=== PATIENT | female | born 1960 | race Caucasian/White ===

== ENCOUNTER 2016-09-02 06:23 | Day surgery (SDC) | payer OTHER ==
[~2016-09-02] VITALS: Ht 149.9 cm; Wt 94.5 kg
[~2016-09-02 06:23] MED LIST: ALPR0.5T8 PO; BACL10TA PO; DICL2100G TP; DOCU250C91 PO; ESZO3 PO; IBUP-1547 PO; LATA2.5D2 OU; LEVO25TA9 PO; LIDO15CR11 TP; LORA10TA7 PO; OMEP40CA12 PO; OXYC10 PO; SUCR1TAB PO; TOPI100 PO; TRAZ150 PO; VILA10TA PO; VILA20TA PO
[2016-09-02] MEDS ORDERED: SODIUM CHLORIDE 0.9% 1,000 ML IV ONE ×2 (06:40→06:45)
[2016-09-02] MEDS ORDERED: BUPIVACAINE HCL/PF 0.75% 10 ML VIAL ONE (07:35)
[2016-09-02] MEDS ORDERED: LIDOCAINE HCL/PF 2% 5 ML VIAL ONE (07:35)
[2016-09-02] MEDS ORDERED: TRIAMCINOLONE ACETONIDE 40 MG/ML VIAL ONE (07:35)
[2016-09-02] MEDS ORDERED: SODIUM BICARBONATE 50 MEQ/50 ML VIAL ONE (07:35)
[2016-09-02] MEDS ORDERED: LIDOCAINE HCL/PF 1% 30 ML VIAL ONE (07:35)
[2016-09-02] MEDS ORDERED: IOHEXOL 300 MG/ML 10 ML VIAL ONE (07:35)
[2016-09-02] MEDS ORDERED: LEVO2TAB4 PO (07:44)
[2016-09-02] MEDS ORDERED: FentaNYL CITRATE-PF 100 MCG/2 ML VIAL ONE (08:01)
[2016-09-02] MEDS ORDERED: MIDAZOLAM HCL 2 MG/2 ML VIAL ONE (08:01)
[2016-09-02 08:02] VITALS: BP 136/93
[2016-09-02] MEDS ORDERED: LIDOCAINE HCL/PF 2% 5 ML VIAL IARTIC ONE (08:30)
[2016-09-02] MEDS ORDERED: TRIAMCINOLONE ACETONIDE 40 MG/ML VIAL IARTIC ONE (08:30)
[2016-09-02] MEDS ORDERED: IOHEXOL 300 MG/ML 10 ML VIAL IARTIC ONE (08:30)
[2016-09-02] MEDS ORDERED: MIDAZOLAM HCL 2 MG/2 ML VIAL IVP ONE (08:30)
[2016-09-02] MEDS ORDERED: LIDOCAINE 1% 30 ML/SOD BICARB 8.4% 4 ML SQ ONE (08:30)
[2016-09-02] MEDS ORDERED: FentaNYL CITRATE-PF 100 MCG/2 ML VIAL IVP ONE (08:30)
[2016-09-02 08:45] VITALS: BP 145/77
== END 2016-09-02 10:05 | disposition home or self-care (01) ==
LOC: SDS 06:23
PROVIDERS: ATTEND Specialist
DX: M47.896 Other spondylosis, lumbar region (principal); F41.9 Anxiety disorder, unspecified; Z90.710 Acquired absence of both cervix and uterus
CPT/HCPCS: 64493; 64494; 64495; J2250; J3010; J3301; J3490 ×3; J7030; Q9967